=== PATIENT | male | born 2000 | race Two or more races ===

== ENCOUNTER 2024-01-11 08:46 | Emergency (ER) | payer OTHER ==
[2024-01-11] MEDS: Cephalexin 500 MG Cap PO STA (09:42)
[2024-01-11] MEDS: Lidocaine/Epineph/Tetracaine 3 ML Syringe TOP ONE (09:49)
[2024-01-11] MEDS: Bacitracin Oint 1 GM U/D Packet TOP ONE (10:46)
[2024-01-11] MEDS: Lidocaine 1% with EPINEPHrine 1:100,000 10 ML MDV INFILT STA (10:46)
== END 2024-01-11 11:14 | disposition home or self-care (01) ==
LOC: MW.ED 08:46
DX: S66.322A Laceration of extensor muscle, fascia and tendon of right middle finger at wrist and hand level, initial encounter (principal); Z75.8 Other problems related to medical facilities and other health care; W26.0XXA Contact with knife, initial encounter
CPT/HCPCS: 12001; 73120; 99283; A9270; J3490